=== PATIENT | female | born 2000 | race Caucasian/White ===

== ENCOUNTER 2020-09-03 15:49 | Emergency (ER) | payer OTHER ==
[~2020-09-03] VITALS: Ht 149.9 cm; Wt 66.2 kg
[2020-09-03 17:36] LABS: HEMATOCRIT 38.3 % (37.0-47.0); HEMOGLOBIN 12.4 gm/dL (12.0-15.0); MCH 26.2 pg (26.0-34.0); MCHC 32.5 g/dL (28.0-37.0); MCV 80.8 fL (80.0-100.0); RBC 4.74 mil/uL (4.20-5.00); RDW 16.5 % (10.5-14.5); WBC 5.9 thou/uL (4.0-11.0)
[2020-09-03 18:54] VITALS: BP 113/76
== END 2020-09-03 19:03 | disposition home or self-care (01) ==
LOC: ER 15:49
PROVIDERS: Emergency Medicine Emergency Medical Services
DX: N93.8 Other specified abnormal uterine and vaginal bleeding (principal)

== ENCOUNTER 2020-11-29 00:33 | Inpatient (IN) | payer OTHER ==
[~2020-11-29] VITALS: Ht 149.9 cm; Wt 66.4 kg
[2020-11-29 00:37] VITALS: BP 104/73
[2020-11-29] MEDS ORDERED: ACETAMINOPHEN PO (00:42)
[2020-11-29 01:13] LABS: BASOPHILS 0.9 % (0.0-2.0); EOSINOPHILS 0.6 % (0.0-3.0); HEMATOCRIT 37.2 % (37.0-47.0); HEMOGLOBIN 12.3 gm/dL (12.0-15.0); LYMPHOCYTES 30.2 % (24.0-44.0); MCH 25.4 pg (26.0-34.0); PLATELET COUNT 211 thou/uL (150-400); POLYS 53.3 % (36.0-66.0); RBC 4.83 mil/uL (4.20-5.00); RDW 15.9 % (10.5-14.5); WBC 3.8 thou/uL (4.0-11.0)
[2020-11-29 01:30] LABS: CALCIUM 8.8 mg/dL (8.5-10.1); CREATININE 0.6 mg/dL (0.6-1.0); POTASSIUM 3.9 mmol/L (3.5-5.1)
[2020-11-29 04:15] LABS: CSF CLARITY CLEAR; CSF GLUCOSE 62 mg/dL (40-70); VOLUME 4 ml
[2020-11-29 04:16] LABS: CSF COLOR PINK; CSF PROTEIN 67 mg/dL (15-45)
[2020-11-29 05:02] LABS: CSF WBC 1 /mm3 (0-10)
[2020-11-29 05:03] LABS: CSF RBC 2660 /mm3
--- NOTE | 2020-11-29 07:08 | NUR ---
TOOK OVER CARE FROM FAWN WOLFF AT THIS TIME
--- NOTE | 2020-11-29 09:49 | EKG ---
[address] [address] ELECTROCARDIOGRAM REPORT Name: MICHEAL YOUSSEF Room #: 170-13 ADM IN M.R.#: [id number] Admission: 11/29/20 Attend Phys: Gregory Arrieta MD Discharge: Date of : 89 Report #: [id number] [facility] ED Test Date: 2020-11-29 Test Time: 09:09:59 Pat Name: MICHEAL YOUSSEF Department: Room: 170 13 Gender: F Director Of Content And Programming: JUDY : 2000 Requested By: Franci Marquez Order Number: [id number] MD: Saul Kaplan Measurements Intervals [place] Rate: 79 P: 45 AK: 148 QRS: 17 QRSD: 80 T: 13 QT: 409 QTc: 469 Interpretive Statements Sinus rhythm No previous ECG available for comparison Electronically Signed On 11-29-2020 9:48:51 CDT by Saul Kaplan [email or web address] <ELECTRONICALLY SIGNED> By: Saul Kaplan MD, [facility] 11/29/20 0948 8 Saul Kaplan MD, FACC /EPI
[2020-11-29 15:29] VITALS: BP 98/68
[2020-11-29 16:12] VITALS: BP 120/78
[2020-11-29 17:25] VITALS: BP 123/89
--- NOTE | 2020-11-29 19:13 | NUR ---
PT RECEIVED FROM ED AAOX4, VSS, VERY PLESANT. C/O ONGOING NAUSEA, ZOFRAN IV GIVEN PER MAY. PT STATES SHE HAS A HEADACHE THAT FEELS LIKE PRESSURE AND DIZZINESS. ADMISSION QUESTIONS COMPLETED WITH PT. MOM ALEM KELLOGG LISTED DPOA, PT CONSENTS TO BOYFRIEND ALSO RECEIVING UPDATES. PT UP WITH STANDBY ASSIST FOR SAFETY DUE TO DIZZINESS. STEADY ON HER FEET TO BEDSIDE COMMODE. PT INSTRUCTED ON SAFETY AND USE OF CALL LIGHT FOR ASSISTANCE OOB - SHE VERBALIZED UNDERSTANDING. REPORT GIVEN TO ONCOMING FAWN KAY. PT RESTING IN BED. CALL LIGHT WITHIN REACH, BED ALARM ON. REACH.
--- NOTE | 2020-11-29 19:29 | NUR ---
PT STATED TO RN THAT JUST PRIOR TO THE ONSET OF SYMPTOMS ON 11/22 (SX'S STARTED WITH WEAKNESS) SHE WAS CLEANING A HOUSE WITH HER [id number]. SHE STATES THE HOUSE HAD A LOT OF ANIMALS BUT DOES NOT RECALL IT BEING OLD OR HAVING NOTICEABLE MOLD. RN ENCOURAGED PT TO SHARE THIS WITH ID DOC AND ANY OTHER DOCTOR DURING HER CURRENT HOSPITAL STAY.
[2020-11-29 19:45] VITALS: BP 130/91
--- NOTE | 2020-11-29 23:09 | NUR ---
PT SLEEPING IN BED. AROUSED BY CONVERSATION. IVF INTACT. PT COMPLETED MRI FORM AND PT DID HAVE MRI THIS EVENING. PALE SKIN TONE. EDEMA L HAND. PT HESITANT TO LOVENOX INJ, BUT COMPLIANT AFTER INFORMATION PROVIDED RE BLOOD CLOTS AND COVID. PT PROVIDED HS SNACK. DR CONTRERAS AND PROVIDER GREASE CUP FILLER HAD TO BE CONTACTED TO CLARIFY MRI STAT AND MUSIC ORCHESTRATOR CONTACTED. NO C/O DISCOMFORT. CALLS FOR ASSISTANCE.
[2020-11-30 00:24] VITALS: BP 112/72
[2020-11-30 03:35] VITALS: BP 118/82
[2020-11-30 04:18] LABS: URINE BILIRUBIN NEGATIVE (Negative); URINE BLOOD NEGATIVE (Negative); URINE CLARITY CLEAR; URINE COLOR YELLOW; URINE GLUCOSE-RANDOM* 1+ (Negative); URINE KETONES 2+ (Negative); URINE LEUKOCYTES-REFLEX NEGATIVE (Negative); URINE NITRITE-REFLEX NEGATIVE (Negative); URINE PROTEIN (DIPSTICK) NEGATIVE (Negative); URINE UROBILINOGEN 0.2 E.U./dl (0.2-1.0)
[2020-11-30 05:25] LABS: ABSOLUTE NEUTROPHILS 2.1 thou/uL (1.4-8.2); BASOPHILS 0.1 % (0.0-2.0); HEMATOCRIT 34.3 % (37.0-47.0); HEMOGLOBIN 11.4 gm/dL (12.0-15.0); MCH 26.2 pg (26.0-34.0); MCHC 33.3 g/dL (28.0-37.0); MCV 78.6 fL (80.0-100.0); MONOCYTES 6.9 % (1.0-8.0); PLATELET COUNT 225 thou/uL (150-400); RBC 4.36 mil/uL (4.20-5.00); RDW 15.8 % (10.5-14.5); WBC 2.8 thou/uL (4.0-11.0)
[2020-11-30 05:39] LABS: ALBUMIN 2.8 g/dL (3.4-5.0); ANION GAP 9 mmol/L (7-16); BUN 5 mg/dL (7-18); CALCIUM 8.2 mg/dL (8.5-10.1); CHLORIDE 107 mmol/L (98-107); CO2 26 mmol/L (21-32); CREATININE 0.6 mg/dL (0.6-1.0); DIRECT BILIRUBIN < 0.1 mg/dL (<0.1-0.2); GLUCOSE 186 mg/dL (74-106); MAGNESIUM 1.9 mg/dL (1.8-2.4); PHOSPHORUS 3.1 mg/dL (2.5-4.9); POTASSIUM 3.6 mmol/L (3.5-5.1); SGOT 15 U/L (15-37); SGPT 17 U/L (30-65); SODIUM 142 mmol/L (136-145); TOTAL BILIRUBIN 0.3 mg/dL (0.2-1.0); TOTAL PROTEIN 6.4 g/dL (6.4-8.2)
[2020-11-30 07:17] VITALS: BP 125/78
[2020-11-30 15:52] VITALS: BP 110/73
--- NOTE | 2020-11-30 18:00 | NUR ---
ASSUMED PATIENT CARE AT 0700. A/0 X4. HEADACHE BETTER TODAY 07/14. POOR APPATITE. UP AD RAFAEL. AFEBRILE. PROGRESSING TOWARDS POC GOALS.
[2020-11-30 19:21] VITALS: BP 115/70
[2020-12-01 05:37] VITALS: BP 119/76
--- NOTE | 2020-12-01 05:48 | NUR ---
PT MAKING PROGRESS TOWARDS GOALS. ON ROOM AIR THROUGHOUT THE NIGHT. DENIED ANY SOA. PT ABLE TO AMBULATE TO THE TOILET AND BACK. LUNGS DIMINISHED THROUGHOUT. HAS DENIED ANY PAIN OVER NIGHT.
--- NOTE | 2020-12-01 07:14 | HC ---
[facility] [place] [address] CONSULTATION Name: MICHEAL YOUSSEF Room #: 359-P ADM IN M.R.#: [id number] Admission: 11/29/20 Attend Phys: Gregory Arrieta MD Discharge: Date of : 89 Report #: [id number] THIS REPORT FOR: cc: FAM - No family physician/PCP FAM - No family physician/PCP Nikolai Thacker MD ~ DATE OF SERVICE: 11/29/2020 INFECTIOUS DISEASE CONSULTATION ATTENDING PHYSICIAN: Dr. Arrieta. REASON FOR EVALUATION: COVID-19 infection, admitted with a severe headache as well as intractable nausea. HISTORY OF PRESENT ILLNESS: Chart reviewed. The patient examined. This is a 20-year-old woman without significant medical history who has been ill for the last 48-72 hours, complains of onset of severe global type headache, described as a pounding in character. Subsequent to that, developed some nausea and emesis and was unable to keep anything down. Has had fevers and admits to being cold. She has had apparently some speech difficulty, visual disturbances as well. She does work at [employer], has a child 2 years old and goes to school. Evaluation was undertaken borderline leukopenic, white count of 3.8. Electrolytes otherwise unremarkable. Coronavirus testing for PCR was positive, although the ID now was negative. CT of the head was otherwise unremarkable. CSF profile noted to have 1 white cell, 2660 red cells, glucose of 62, protein of 67. CSF, Gram stain was rare wbc's, many rbc's, no organisms. D-dimer was slightly elevated. CTA chest PE protocol was otherwise notable for diffuse bilateral opacities. She does admit to some mild dyspnea, although she is not requiring supplemental oxygen at this point. ALLERGIES: VANCOMYCIN, WHICH CAUSES A RASH. CURRENT MEDICATIONS: Include ceftriaxone, enoxaparin, famotidine, acyclovir, p.r.n. ondansetron, promethazine, methylprednisolone, remdesivir, ivermectin was given. PAST MEDICAL HISTORY: Otherwise, unremarkable. SOCIAL HISTORY: As described above. Denies ethanol. None tobacco. FAMILY HISTORY: Noncontributory. REVIEW OF SYSTEMS: Otherwise, unremarkable. PHYSICAL EXAMINATION: [facility] [address] [place] [address] CONSULTATION Name: LUIS YOUSSEFLUPE Room #: [address] [place] [address] IN M.R.#: [id number] Admission: 11/29/20 Attend Phys: Gregory Arrieta MD Discharge: Date of : 89 Report #: [id number] GENERAL: She is alert, cooperative. She is in clear distress. She is lucid. VITAL SIGNS: Temperature 97.3, pulse is 67, respirations 16, blood pressure 120/78. SKIN: Warm, dry, no rashes. HEENT: Mild neck discomfort. LUNGS: Generally clear to auscultation. HEART: Regular. I do not appreciate murmur. ABDOMEN: Soft, nontender, nondistended. EXTREMITIES: No cyanosis. GENITOURINARY AND RECTAL: Deferred. LABORATORY DATA: CTA of the chest as noted above. Electrolytes: Sodium 140, potassium 3.9, chloride 101, bicarbonate 27, anion gap of 12, BUN and creatinine 10 and 0.6, glucose of 87. CBC: White count of 3.8, H and H 12.3 and 37.2, platelets of 211. test was negative. ASSESSMENT AND PLAN: COVID-19 infection complicated by radiographic evidence of pneumonitis, although has not required oxygen support at this point. She is on combination therapy including remdesivir as well as corticosteroids. I think we will hold off on monoclonal antibody, is also on antibacterial therapy as well. Secondly, has a severe headache and does have evidence of some blood on the CSF, whether there was a trauma associated with it. I do think it is reasonable to continue the acyclovir, the most common cause of sporadic encephalitis due to herpes simplex and she would be of the age where she may be exposed in having the initial infection. We will add CSF studies for HSV to the current orders. Continue to monitor expectantly. At this point, inclined to treat symptomatically. I do not think there is evidence of bacterial etiology at this point. <ELECTRONICALLY SIGNED> By: Nikolai Thacker MD 12/01/20 0714 [id number] Nikolai Thacker MD /nt
[2020-12-01 07:31] VITALS: BP 110/70
--- NOTE | 2020-12-01 08:50 | NUR ---
VARIANCE NOTE: ORDERS RECEIVED FOR O.T. EVAL AND TREAT. PER RN, PT IS UP AD RAFAEL AND HAD BEEN HAVING SOME ISSUES W/ DIZZINESS, HOWEVER, HAS MOSTLY RESOLVED. PT IS TOTALLY INDPT AT BASELINE, AND DOES NOT HAVE CONCERNS FOR RETURNING HOME. DISCUSSED INCREASED SAFETY W/ TRANSFERS DUE TO DIZZINESS, BUT PT OTHERWISE POLITELY DECLINING O.T. SERVICES. WILL SIGN OFF ON O.T. AT THIS TIME, PLEASE RE-ORDER IF NEED ARISES. THANK YOU.
--- NOTE | 2020-12-01 09:30 | NUR ---
Nutrition: pt admitted with headaches, nausea, vomiting, weakness, COVID. Risk for poor intake, weight loss. Spoke with pt over phone due to enhanced precautions. Pt feels she has lost maybe a couple #. Current weight right around usual however. Decreased oral intake past 3 days. PO 10-20% of meals documented on 11/30. RD obtained food preferences and educated pt on how to order meals as desired. Pt agrees to trial ensure daily. On IVFs. On miralax for constipation. Consider low nutrition risk.
--- NOTE | 2020-12-01 11:06 | NUR ---
ORDERS RECEIVED FOR PT EVAL AND TREAT. Pt HAS BEEN UP AD RAFAEL IN ROOM W/O DIFFICULTIES. REPORTED SLIGHT BACK PAIN BUT THAT HER DIZZINESS WAS MUCH BETTER. WORKS FOR [employer]. HAS NO CONCERNS ABOUT MOBILITY AT THIS TIME AND DECLINES NEEDS FOR PT. ACUTE PT TO SIGN OFF.
[2020-12-01 15:37] VITALS: BP 93/52
[2020-12-01 19:30] VITALS: BP 131/89
--- NOTE | 2020-12-01 21:33 | NUR ---
PT CHEERFUL, SITTING UP IN BED SMILNG. IVF INTACT. PT PLANS ON DC TOMORROW. PT PROVIDED HS SNACK. PT DENIES SOA, DISCOMFORT.
[2020-12-02 04:45] VITALS: BP 126/73
[2020-12-02 07:01] VITALS: BP 101/65
[2020-12-02] MEDS ORDERED: VALTREX 500 MG500 MG PO (11:41)
[2020-12-02] MEDS ORDERED: VITAMIN D325 MC2 PO (11:41)
[2020-12-02] MEDS ORDERED: VITAMIN C1000 MG PO (11:41)
[2020-12-02 12:23] VITALS: BP 101/65
[2020-12-03 15:08] LABS: CSF VDRL Non Reactive (Non Rea:<1:1)
[2020-12-04 08:44] LABS: HSV 1 DNA None detected; HSV PCR SOURCE CSF
[2020-12-04 08:45] LABS: HSV 2 DNA None detected
== END 2020-12-02 14:10 | disposition home or self-care (01) | DRG 177 ==
LOC: ER 00:33 → EROBS 06:19 → 3W 16:50
PROVIDERS: Emergency Medicine; Internal Medicine; Specialist; ADMIT Hospitalist; ATTEND Hospitalist
DX: U07.1 COVID-19 (principal); J12.82 Pneumonia due to coronavirus disease 2019; Z88.1 Allergy status to other antibiotic agents; K59.00 Constipation, unspecified; Z79.899 Other long term (current) drug therapy
CPT/HCPCS: 10779